=== PATIENT | male | born 1935 | race Caucasian/White ===

== ENCOUNTER 2017-07-13 06:40 | Inpatient (IN) | payer MEDICARE ==
[2017-07-13] VITALS (10 sets, daily range): BP systolic 125–165; BP diastolic 50–65
[~2017-07-13] VITALS: Ht 175 cm; Wt 63.2 kg
--- NOTE | ~2017-07-13 | EKG ---
[place], [place] ELECTROCARDIOGRAM REPORT NAME: NORMAN CUEVAS UNIT #: [id number] ROOM: 529 DOCTOR: KAMLA LAROSE MD,VICTORINA BIRTHDATE: [birth year] DOS: 07/14/2017 Electrocardiogram done for 07/14/2017, at 1:17 p.m. Normal sinus rhythm noted. Heart rate 97 beats per minute. The apices was also noted. VICTORINA CASON MD CM:EKGRPT:ELECTROCARDIOGRAM REPORT 1614 [id number] VICTORINA LAROSE MD
--- NOTE | ~2017-07-13 | CON ---
[place], [place] REPORT OF CONSULTATION NAME: NORMAN CUEVAS UNIT #: [id number] ROOM: 529 DOCTOR: AGATA COOK MD BIRTHDATE: [birth year] DOS: 07/15/2017 REASON FOR CONSULTATION: Congestive heart failure. CLINICAL HISTORY: The patient is an 82-year-old gentleman with history of hypertension, COPD, home oxygen, came to the Emergency Room for progressive shortness of breath, cough, and chest congestion, which has been going on for at least a week. The patient did have some chronic underlying shortness of breath from the COPD, but for the past week or two, he has progressive shortness of breath. In the Emergency Room, found to have a pleural effusion on the right side as well as some possible pneumonia. He was admitted to the hospital and the Pulmonary was consulted and Cardiology was consulted for his heart failure and currently he is being treated with oxygen, antibiotics and also DuoNeb. At the time of examination, the patient was alert, mild short of breath. Denies any chest pain, no palpitations, no PND, no orthopnea, no nausea, vomiting, no fever and chills, no tingling, numbness or weakness. No neurologic symptoms. No visual symptoms. No bladder or bowel symptoms. NO musculoskeletal symptoms. No psychiatric symptoms. No GI symptoms, only accompanied with mild shortness of breath at rest and also on exertion. REVIEW OF SYSTEMS: Review of the 10 system negative except as mentioned above. PAST MEDICAL HISTORY: 1. Hypertension. 2. Advanced COPD. 3. Home oxygen. PAST SURGICAL HISTORY: Noncontributory. ALLERGIES: THE PATIENT IS ALLERGIC TO ASPIRIN. HOME MEDICATIONS: Reviewed. FAMILY HISTORY: Noncontributory. SOCIAL HISTORY: The patient does not smoke or drink. No illicit drugs. REVIEW OF THE DIAGNOSTIC TESTS: EKG, labs, and imaging studies reviewed. EKG showed sinus tachycardia with some lateral ST-T changes. Hemoglobin 12.2, platelet 440,000. Potassium 3.3, magnesium 2.0, creatinine 0.66, BUN 6, ProBNP 1763. Troponins are negative. Chest x-ray reviewed. PHYSICAL EXAMINATION: VITAL SIGNS: Blood pressure 135/50, pulse 103, respiratory rate 18, weight 61.3 kilos, BMI 20. GENERAL: Alert, comfortable, in no acute distress, mild short of breath while talking. HEENT: Pupils are equal, no jaundice. NECK: Supple, no distended neck veins, no carotid bruit. CHEST: Symmetrical, nontender. [place], [place] REPORT OF CONSULTATION NAME: NORMAN CUEVAS UNIT #: [id number] ROOM: 529 DOCTOR: JOYCE VILLEGAS,AGATA BIRTHDATE: [birth year] LUNGS: Few scattered rhonchi, diminished at the right base. HEART: Regular rhythm, no S3, grade 2/6 systolic murmur at the right sternal border. No palpable thrills. ABDOMEN: Benign, nontender. Bowel sounds normal. EXTREMITIES: Showed no edema. Distal pulses palpable. SKIN: Warm and dry. No cyanosis, no clubbing. RECTAL: Deferred. NEUROLOGIC: The patient is alert, oriented. PSYCHIATRIC: The patient is alert with good mood and affect. IMPRESSION: 1. Chronic diastolic heart failure. Follow up all possible right heart failure. 2. Sinus tachycardia, borderline, due to underlying pulmonary condition. 3. Advanced chronic obstructive pulmonary disease. 4. Hypertension. 5. Possible pulmonary hypertension and tricuspid regurgitation by examination. 6. Mild hypokalemia. RECOMMENDATIONS: I would give him Lasix 20 mg daily for his right pleural effusion and also elevated BNP. The patient had no rales and no edema. Monitor his blood pressure and renal function. Check 2D echo for LV function, right ventricular function. No further cardiac testing at this time. Supplement his potassium with 20 mEq of potassium chloride. The patient gets more sinus tachycardic, rates are above 120, then I will start low dose beta blockers. There is no family at bedside at the time of my examination. AAGTA COOK MD CM:CONSTR:REPORT OF CONSULTATION 1623 07/16/17 [id number] interface
--- NOTE | ~2017-07-13 | PR ---
[place], [place] PROGRESS NOTE [facility]: [id number] UNIT #: [id number] ROOM: 529 DOCTOR: CAESAR BALDERRAMA DO BIRTHDATE: [birth year] DOS: 07/15/2017 SUBJECTIVE: The patient was seen and evaluated while sitting upright in bed today. He notes that he has been having trouble sleeping and is wondering if there is any medication that he could be given to help him sleep at night. He does note that his breathing is much better, though he is still having a harsh cough and is not fully able to expectorate. He does note that he is not getting quite as winded when ambulating. He denies any chest pain, lightheadedness, dizziness, nausea, vomiting, fever or chills. OBJECTIVE: VITAL SIGNS: At the time of exam, temperature 98.2, pulse 93, respiratory rate 18, blood pressure 134/80, and bedside pulse ox 94% on room air. GENERAL: Alert, awake, in no acute distress, responsive and cooperative. HEAD: Normocephalic, atraumatic. EYES: No lesions, no ulceration, no drainage, nonicteric. ENT: No scars, no masses, no lesions. Oral mucosa moist. Nares patent. NECK: Without masses or ulcerations. Supple, nontender. Trachea is midline. LUNGS: Clear to auscultation bilaterally. No wheezes, no rhonchi, no rales appreciated today. Good inspiratory effort. CARDIAC: Regular rate and rhythm. No gallop, no murmur, no rubs. No edema in lower extremities. ABDOMEN: Soft, nontender, nondistended. Bowel sounds are present. No abdominal pain. EXTREMITIES: No clubbing, no cyanosis, no erythema, no edema. SKIN: No rash, no ulceration, no lesion, no induration, no nodules. LABORATORY AND DIAGNOSTIC DATA: Blood cultures are negative. Urine culture is negative. Stool was sent for C. diff and is negative. IMPRESSION: 1. Likely right lower lobe pneumonia, community acquired. 2. Acute exacerbation of reactive airway disease, possibly chronic obstructive pulmonary disease. 3. Essential hypertension. 4. Hypothyroidism. TREATMENT PLAN: The patient will have bronchoscopy today. Continue IV antibiotics with Rocephin, azithromycin, adjustment to antibiotic regimen will depend on cultures from bronchial washings. Continue Solu-Medrol 40 q.8 IV and DuoNeb breathing treatments. Discussed the use of Restoril for insomnia for the patient with the patient's PCP, Dr. Dyllan Abdi and he is in agreement with this plan, we will start 15 mg Restoril at bedtime p.r.n. insomnia. CAESAR BALDERRAMA DO [place], [place] PROGRESS NOTE NAME: NORMAN CUEVAS UNIT #: [id number] ROOM: 529 DOCTOR: CAESAR BALDERRAMA DO BIRTHDATE: [birth year] VICTORINA CASON MD CM:PNSUNITHA [id number] CAESAR BALDERRAMA DO 07/15/171926 interface
--- NOTE | ~2017-07-13 | PR ---
[place], [place] PROGRESS NOTE NAME: [id number] UNIT #: [id number] ROOM: 529 DOCTOR: KAMLA LAROSE MDVICTORINA BIRTHDATE: [birth year] DOS: 07/15/2017 SUBJECTIVE: The patient has been n.p.o. past midnight for bronchoscopy. He was independently seen and examined with [id number] encounter. History was confirmed. Physical examination was performed. The labs were reviewed. The assessment, management personally completed. Note done by the medical coding instructor was approved as well. The patient has been still noted symptoms of coughing, wheezing, without any changes, dyspnea with exertion. Denies symptoms of chest pain, headache or diplopia. Denies symptoms of abdominal pain, nausea, vomiting, diarrhea, dysuria or suprapubic pain. The remaining systems were reviewed. They were noted all negative. PHYSICAL EXAMINATION: VITAL SIGNS: Normal temperature, respiratory rate of 18, heart rate 93, blood pressure 134/50. The pulse oxygen saturation was noted on 2 liter nasal cannula was 95% saturation. HEENT: No acute change. NECK: Supple. CARDIOVASCULAR: S1, S2 is audible. LUNGS: Noted without any crackles. Moderate decreased breath sounds. Expiratory wheezing noted bilaterally. ABDOMEN: Soft, nontender. EXTREMITIES: Without any acute edema. MUSCULOSKELETAL: Without any acute deformities. SKIN: Noted without any lesions or rashes. CENTRAL NERVOUS SYSTEM: No focal deficit. Cranial nerves 2-12 intact. LABORATORY DATA: Reviewed today, stool for C. diff toxin noted negative. CT scan of the chest that I ordered for the patient was completed on 07/14/2017 and shows bilateral small pleural fluid noted, greater on the right than the left side. Area of compression atelectasis of the patient was noted in the right lower lobe. Specifically, there was no pulmonary nodules above in the left lower lobe as well as right lower lobe for the patient as suspected with a chest x-ray. IMPRESSION: 1. Ongoing acute exacerbation of chronic obstructive pulmonary disease with acute tracheobronchitis. 2. Bilateral pleural fluid, most likely related due to congestive heart failure superimposed with the current ongoing chronic obstructive pulmonary disease would be considered. Additional diagnoses of the pleural fluid noted [id number] on the right side. There was no pulmonary nodules noted at the present time. 3. Area of compression atelectasis of the patient in the right lower lobe, possibility of pneumonia certainly can be completely excluded. PLAN OF TREATMENT: Continue antibiotics, bronchodilators, and oxygen supplementation proceed with the bronchoscopy today as planned. A thoracentesis could be done as pleural fluid remains persistent in the right side could be tappable fluid. Diuretic therapy for the patient should be given. Cardiology [place], [place] PROGRESS NOTE NAME: NORMAN CUEVAS UNIT #: [id number] ROOM: 529 DOCTOR: KAMLA LAROSE MD,VICTORINA BIRTHDATE: [birth year] consultation will be recommended if not done. Current dose of Solu-Medrol will be continued for the patient as previously. Usual care. All other supportive therapy, plan of management and treatments. VICTORINA CASON MD CM:AUREA [phone] VICTORINA LAROSE MD 07/20/17 0719 interface
--- NOTE | ~2017-07-13 | CON ---
[place], [place] REPORT OF CONSULTATION NAME: NORMAN CUEVAS UNIT #: [id number] ROOM: 529 DOCTOR: CAESAR BALDERRAMA DO BIRTHDATE: [birth year] DOS: 07/14/2017 CONSULTING PROVIDER: Dr. Dyllan Abdi. REASON FOR CONSULTATION: Pneumonia. HISTORY OF PRESENT ILLNESS: This patient is an 82-year-old white male who states he has had worsening shortness of breath and coarse cough over the past week. He notes that he has not been able to expectorate anything with his cough. He also notes a history of chronic back pain and states that the Vicodin he takes p.r.n. did help with his cough as he had developed some rib pain along the costovertebral angles. The patient states he had a pneumonia shot, but thinks it was possibly about 6 years ago and he has not had one since. He does also note that he did get a flu shot this year. The patient also reports symptoms of lightheadedness upon change of position and episode of diaphoresis a couple of days ago associated with his shortness of breath, lower extremity edema, one episode of posttussive emesis and occasional urinary issues including increased frequency and postvoid dribbling. He is a former smoker, states he smoked about a pack per week for about 20 years, but quit 2 months ago. 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 REVIEW OF SYSTEMS: CONSTITUTIONAL: The patient denies fever, chills or any significant weight change. HEENT: Denies any burning, redness, tenderness in his eyes. Denies pain in the eyes, ears, nose or mouth. Denies change in vision or hearing. Denies trouble swallowing. CARDIOVASCULAR: Denies chest pain, but does admit some pain in his posterior ribs with deep breathing and after coughing. Denies palpitations. Reports lower extremity edema. RESPIRATORY: Reports shortness of breath, reports cough. Reports dyspnea on exertion, reports chest congestion and reports wheezing. Denies any paroxysmal nocturnal dyspnea. GASTROINTESTINAL: Denies nausea, but does admit one episode of posttussive emesis. Denies diarrhea, constipation. Denies abdominal pain. Denies melena, denies hematochezia. Denies hematemesis. Denies loss of appetite. GENITOURINARY: Denies dysuria, but reports increased frequency of urination and postvoid dribbling with urination. Denies hematuria. SKIN: Denies any new rashes, lesions or ulcers. MUSCULOSKELETAL: Denies joint pains, erythema or cyanosis of the extremities. Reports lower extremity edema. NEUROLOGIC: Denies dizziness, denies confusion. Reports lightheadedness with change of position. PSYCHIATRIC: Denies depression, denies anxiety. Denies any substance abuse. PAST MEDICAL HISTORY: 1. Essential hypertension. 2. Hypothyroidism. 3. Chronic back pain with sciatica-type symptoms down the left leg. [place], [place] REPORT OF CONSULTATION NAME: NORMAN CUEVAS UNIT #: [id number] ROOM: 529 DOCTOR: CAESAR BALDERRAMA DO BIRTHDATE: [birth year] PAST SURGICAL HISTORY: The patient reports abdominal surgery, but he is unsure of the exact procedure that took place. From what he remembers, it sounds like a perforated stomach ulcer that was repaired. 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 Víctor Graves had at that time considered plans for a left carotid endarterectomy though the patient does not remember this procedure. SOCIAL HISTORY: Former smoker, quit 2 months ago, previously smoked a pack per week of cigarettes for 20 years, occasional consumption of alcohol and does not use illicit drugs. FAMILY HISTORY: The patient's mother at age 90 of old age. The patient's father at age 94 of old age. HOME MEDICATIONS: Include 10 mg of daily amlodipine and 50 mcg of daily Synthroid. DRUG ALLERGIES: ASPIRIN. PHYSICAL EXAMINATION: GENERAL: This is an 82-year-old white male who is awake and alert without any acute distress. He is 5 feet 9 inches tall and weighs 63.276 kilograms with a BMI of 20.7. VITAL SIGNS: At the time of exam, temperature 97.9, pulse 68, respiratory rate 17, blood pressure 122/56 with bedside pulse ox 97% on 2 liters via nasal cannula. The patient does not wear oxygen via nasal cannula at home. HEAD: Normocephalic, atraumatic. EYES: No lesions, no ulceration, no drainage, nonicteric. ENT: No lesions, no masses, no scars. Nares patent. Oral mucosa moist. No pharyngeal erythema or exudate. Tongue is midline. NECK: Supple, nontender, trachea is midline. CARDIOVASCULAR: Regular rate and rhythm with no murmurs, rubs or gallops noted, 2-3+ pitting edema of the bilateral lower extremities is noted. LUNGS: Decreased breath sounds diffusely. Bilateral expiratory wheeze and some rhonchi and crackles noted to the right lower lobe and also coarse cough with little to no production noted. ABDOMEN: Soft, nontender, flat, nondistended. Bowel sounds present. EXTREMITIES: No cyanosis, clubbing, erythema. 2-3+ bilateral lower extremity pitting edema is noted. SKIN: Warm and dry, no lesions, no masses, no rashes, no ulcerations, no nodules, no tightening noted. NEUROLOGIC: Grossly intact with no focal deficit. Sensation grossly intact. PSYCHIATRIC: Good historian. Fair judgment and insight. Good recent and remote memory. Exhibits normal mood and normal affect. LABORATORY AND DIAGNOSTIC DATA: CBC on admission yesterday morning, white blood cell count 11, hemoglobin 11.7, hematocrit 34.3, platelet count 422. CBC this morning, white blood cell count down to 8, hemoglobin 12.2, hematocrit 35.8 and platelet count 440. CMP on admission, sodium 134, potassium 4, chloride 102, bicarbonate 22, BUN 9, creatinine 0.76, glucose 114, calcium 8.1 with an albumin [place], [place] REPORT OF CONSULTATION NAME: NORMAN CUEVAS UNIT #: [id number] ROOM: 529 DOCTOR: CAESAR BALDERRAMA DO BIRTHDATE: [birth year] of 3.6, total protein 7.8, total bilirubin 0.5, AST 20, ALT 18, alkaline phosphatase 68. Initial troponin negative. Initial proBNP 1763. Initial lactic acid normal at 1.3. Initial magnesium 2.4. BMP this morning, sodium 138, potassium 3.3 slightly low, chloride 103, bicarbonate 24, BUN 6, creatinine 0.66, glucose 90, calcium 8.3. Urinalysis on admission, largely benign, but does show 1+ protein and 1+ blood. Blood cultures were taken on admission and they are pending. Urine culture has resulted with no bacterial growth. Chest x-ray taken on admission in the ER shows opacity in the right lung base concerning for pneumonia with a small right pleural effusion. IMPRESSION: 1. Right lower lobe pneumonia, community acquired with small right pleural effusion, possibly due to pneumonia. 2. Possible reactive airway disease exacerbation. 3. Essential hypertension. 4. Hypothyroidism. PLAN OF MANAGEMENT: The patient was admitted and started on IV antibiotics with Rocephin and azithromycin, we agree with these antibiotics and we will continue. We will add 40 mg Solu-Medrol q.8h IV with DuoNeb breathing treatments q.4h. for the possible reactive airway disease exacerbation as the patient has been wheezing and tight on exam. He has no formal diagnosis of COPD or asthma at this time and would likely benefit from pulmonary function testing as an outpatient to assess for these conditions. Furthermore, the patient will be taken for bronchoscopy in the morning. He will be made n.p.o. after midnight in order to be ready for the bronchoscopy tomorrow. Thank you for allowing us to participate in the care of this patient. CAESAR BALDERRAMA DO VICTORINA CASON MD CM:CONSTR:REPORT OF CONSULTATION 1703 07/20/17 0717 interface
--- NOTE | ~2017-07-13 | PR ---
[place], [place] PROGRESS NOTE NAME: NORMAN CUEVAS UNIT #: [id number] ROOM: 529 DOCTOR: KAMLA LAROSE MD,VICTORINA BIRTHDATE: [birth year] DOS: 07/16/2017 SUBJECTIVE: He has been noted comfortable at this time. The bronchoscopy completed yesterday. The patient with reduction in symptoms of cough and other symptoms noted. Complaining of generalized weakness and fatigue. Wheezing has been improving. There were symptoms of chest pain. OBJECTIVE: VITAL SIGNS: This morning, normal temperature, respiratory rate 19, heart rate 74, blood pressure is 127/54. Pulse oxygen saturation on room air 96% saturation. HEENT: Examination shows head was atraumatic. Eyes: Nonicterus. NECK: Supple. CARDIOVASCULAR: S1, S2 audible. LUNGS: The patient was noted without any wheezing or crackles at the present time. ABDOMEN: Soft, nontender. EXTREMITIES: Noted without any acute edema. LABORATORY DATA: Preliminary culture of the bronchial washing noted as no bacterial growth. Final culture results were pending. IMPRESSION: The patient with resolving acute exacerbation of chronic obstructive pulmonary disease at the present time with current medical management was noted, bronchoscopy, and reduction in symptoms of coughing or wheezing. PLAN OF TREATMENT: Discharge planning could be started for the patient home discharge. The patient stated that he is feeling generalized weakness at the present time. He makes an effort to get benefit from the physical therapy. VICTORINA CASON MD CM:PNTRANS [id number] VICTORINA LAROSE MD 07/16/17 1423 interface
--- NOTE | ~2017-07-13 | DS ---
[place], [place] DISCHARGE SUMMARY NAME: NORMAN CUEVAS UNIT #: [id number] ROOM: 529 DOCTOR: CARMEN RANGEL MD BIRTHDATE: [birth year] DOS: 07/16/2017 DISCHARGE DIAGNOSES: 1. Pulmonary hypertension and right-sided congestive heart failure. 2. Acute exacerbation of chronic obstructive pulmonary disease. 3. Benign essential hypertension. 4. Acute right lower lobe pneumonia. 5. Benign essential hypertension. 6. Hypothyroidism. HOSPITAL COURSE: The patient presented to the Emergency Department with increasing shortness of breath, swelling in his legs, cough, chest congestion and some wheezing and generalized weakness. The patient was found to have pleural effusion and pneumonic consolidation in the right lung base. The patient was treated with antibiotics and taken for a bronchoscopy by Dr. Garrison. The patient had white cell count elevated to 11,000. ProBNP was 1700 and she also showed signs of congestive heart failure. 1. Acute right-sided CHF with pulmonary hypertension related to his COPD. Echocardiogram was performed and he has good left ventricular ejection fraction. The patient appears to have achieved maximum benefit from treatment. His leg edema has improved and he will be kept on bronchodilators. The patient was evaluated and treated by Dr. Garrison and a bronchoscopy was also performed. 2. Acute exacerbation of chronic obstructive pulmonary disease and pneumonia, treated with antibiotics. He is breathing much better and pulse ox remained at 95% with ambulation. The patient not getting short of breath with exertion anymore and his lungs are clear to auscultation. 3. Hypothyroidism, treated with thyroid supplements. 4. Benign essential hypertension treated with Norvasc. Blood pressures are staying normal. LABORATORY DATA: Blood cultures were normal. Echocardiogram results as mentioned above. Stool for C. diff was negative. DISCHARGE MANAGEMENT: Medrol Dosepak, amlodipine 10 mg a day, levothyroxine 50 mcg daily, Augmentin 875 mg twice a day for a week. DuoNeb q.i.d. Follow up with me in the office this week. [place], [place] DISCHARGE SUMMARY NAME: NORMAN CUEVAS UNIT #: [id number] ROOM: 529 DOCTOR: CARMEN RANGEL MD BIRTHDATE: [birth year] CARMEN RANGEL MD CM:[id number] CARMEN RANGEL MD 07/16/17 2158 interface
--- NOTE | ~2017-07-13 | WRIGHTHP ---
[place], [place] PATIENT HISTORY AND PHYSICAL EXAM NAME: NORMAN CUEVAS [facility] #: [id number] UNIT #: [id number] ROOM: 529 DOCTOR: CARMEN RANGEL MD BIRTHDATE: [birth year] DOS: 07/13/2017 PRESENTING COMPLAINT: Increasing shortness of breath, wheezing, cough and patient found to have pneumonia on the chest x-ray along with some pleural effusions. HISTORY OF PRESENT ILLNESS: The patient is an 82-year-old gentleman who presented to [facility] Emergency Department with about 1 week of progressive shortness of breath, cough, chest congestion, some wheezing and generalized weakness. The patient was found to have a pleural effusion in the right lung and a pneumonic consolidation in the right lung base. The chest x-ray with some leukocytosis with a white cell count of 11,000 and elevated proBNP to 1700. The patient was diagnosed as having acute CHF and acute pneumonia with acute respiratory failure and recommended for admission for the management. After admission, the patient will be kept on DuoNebs, oxygen, antibiotics to cover his pneumonia and I will get Dr. Garrison, the surgical instrument mechanic, to follow him. No chest pains, no dizziness or fainting episodes. No other GI or urinary symptoms. The chest pain complaints noted in the Emergency Department. The patient says that he had no chest pain, just some tightness with shortness of breath and wheezing in his chest. No nausea, no diaphoresis and no angina equivalent. REVIEW OF SYSTEMS: LUNGS: Increasing shortness of breath and wheezing. GASTROINTESTINAL: No nausea, vomiting, diarrhea, or constipation. CARDIOVASCULAR: No chest pain or any angina related symptoms. FAMILY HISTORY: Noncontributory. HOME MEDICATIONS: The patient takes levothyroxine and amlodipine. ALLERGIES: Known allergies to ASPIRIN. PHYSICAL EXAMINATION: GENERAL: Alert and oriented x 3, somewhat short of breath, but in no visible distress. HEENT AND NECK: Extraocular movements are intact. Sclerae are anicteric. Oral mucosa is moist and clean. No obvious facial weakness. Neck is supple without any lymphadenopathy. No thyromegaly. No JVD. No carotid arterial bruits. LUNGS: Decreased breath sounds all over and slight expiratory wheezing. CARDIOVASCULAR SYSTEM: Heart rate is regular in rate and rhythm. S1 and S2 normally audible. No significant murmur or any other abnormal cardiac sounds. ABDOMEN: Soft, nontender. No obvious organomegaly. Bowel sounds are present. No obvious herniation. EXTREMITIES: 2+ leg and pedal edema. CENTRAL NERVOUS SYSTEM: Alert and oriented x 3. Cranial nerves II-XII are intact. Speech is normal. The patient is able to move all extremities. Normal [place], [place] PATIENT HISTORY AND PHYSICAL EXAM NAME: NORMAN CUEVAS UNIT #: [id number] ROOM: 529 DOCTOR: CARMEN RANGEL MD BIRTHDATE: [birth year] muscle strength. Deep tendon reflexes are equal on both sides. Plantars were downgoing. IMPRESSION: 1. Acute right-sided heart failure related to his advanced COPD, to be treated with oxygen and leg elevation. The patient has significant leg edema. 2. Benign essential hypertension, to be treated with Norvasc. 3. Hypothyroidism, to be treated with thyroid supplements. CARMEN RANGEL MD CM:HISPHYS:PATIENT HISTORY AND PHYSICAL EXAMINATION 1040 [id number] CARMEN RANGEL MD 07/13/17 1149 interface
--- NOTE | ~2017-07-13 | PROC NOTE ---
[place], [place] PROCEDURE NOTE NAME: NORMAN CUEVAS UNIT #: [id number] ROOM: 529 DOCTOR: KAMLA LAROSE MD,VICTORINA BIRTHDATE: [birth year] DOS: 07/15/2017 BRONCHOSCOPY NOTE PREOPERATIVE DIAGNOSES: Severe coughing, wheezing, possibly acute pneumonia. POSTOPERATIVE DIAGNOSES: Severe coughing, wheezing, possibly acute pneumonia with removal of the mucus impaction of major airways. PROCEDURE DESCRIPTION: Informed consent obtained by the patient. The patient brought to the OR and placed in supine position. Conscious administered by the Anesthesia Department. After that in supine position the airway introduced into the mouth. Bronchoscope advanced to airway into laryngeal area. Epiglottis and vocal cords were seen. Vocal cords moving symmetrically with movements. Bronchoscope advanced to vocal cord and tracheal lumen. Tracheal lumen shows moderate amount of mucoid secretion with some purulent secretion mixture suctioned out to the nan level. The patient noted similar secretions in the endobronchial tree and bilateral lower lobe subsegment which was cleared by half normal saline wash. No endobronchial obstructive lesions noted. Procedure well tolerated by the patient without difficulty. Postoperative finding will be discussed once the patient recovers the effects of acute sedation. No family member available to discuss the current findings. VICTORINA CASON MD CM:PROCNOTE:PROCEDURE NOTE [id number] VICTORINA LAROSE MD
--- NOTE | ~2017-07-13 | CON ---
[place], [place] REPORT OF CONSULTATION [id number] UNIT #: [id number] ROOM: 529 DOCTOR: KAMLA LAROSE MDVICTORINA BIRTHDATE: [birth year] DOS: 07/14/2017 PULMONARY CONSULTATION, EVALUATION AND MANAGEMENT CONSULTATION REQUESTED BY: Dr. Apple Barajas. REASON FOR CONSULTATION: Assess the patient's current ongoing acute respiratory symptom with coughing, chest congestion, and exacerbation of chronic obstructive pulmonary disease. The patient was seen and examined independently in [id number] encounter. History and physical examination confirmed, all the labs were reviewed. Assessment and management of the patient was personally completed, today's note as well. The note done by the medical accountant was approved as well for this consultation. HISTORY OF PRESENT ILLNESS: This is an 82-year-old white male, who has been admitted to the hospital under the care of Dr. Abdi on 07/13/2017, as he has reported having symptoms of progressive increased shortness of breath ongoing for the past few days. He was also complaining of symptoms of wheezing with shortness of breath. All the symptoms have been noted gradually progressive. The patient has been admitted to the hospital for further medical management. The patient was seen in the Emergency Room. He has a chest x-ray done on 07/13/2017, at this time described evidence of pulmonary infiltration suspected pneumonia in the right lower lobe. The patient with a pleural effusion. The patient continued to have symptoms of cough, which has been noted moderate to severe, non-productive with excessive chest congestion. He has not been able to expectorate sputum with the cough. He denies symptoms of hemoptysis with that. Denies any symptoms of chest pain except resulting from the cough. REVIEW OF SYSTEMS: Completed by the medical accountant. PAST MEDICAL HISTORY: 1. History of chronic obstructive pulmonary disease. 2. Chronic nicotine dependence. 3. History of congestive heart failure with systolic and diastolic dysfunction, unknown. 4. History of hypothyroidism. SOCIAL HISTORY: Reported as , has 3 children. History of tobacco use noted, 2 packs per week. 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 There was no history of alcohol use or illicit drug use. PAST SURGICAL HISTORY: Reported vagotomy for the stomach ulcer. FAMILY HISTORY: Unknown. CURRENT MEDICATIONS: Administered noted use of amlodipine, levothyroxine, Mucinex, Zithromax, and Rocephin. [place], [place] REPORT OF CONSULTATION NAME: NORMAN CUEVAS UNIT #: [id number] ROOM: 529 DOCTOR: KAMLA LAROSE MD,VICTORINA BIRTHDATE: [birth year] DRUG ALLERGIES: THE PATIENT NOTED ALLERGY TO ASPIRIN. PHYSICAL EXAMINATION: GENERAL: An 82-year-old white male currently noted awake and alert without any distress. Height of 5 feet 9 inches, weight 175 pounds, BMI 19.5. VITAL SIGNS: Normal temperature, respiratory 18-24, heart rate of 64-95, blood pressure 122/56-131/59. Pulse oxygen saturation recorded as 97% saturation on 2 liters nasal cannula. HEENT: Examination shows head was atraumatic. Eyes nonicterus. NECK: Supple. CARDIOVASCULAR: S1, S2 is audible. LUNGS: Noted with expiratory wheezing in the lungs. There was no wheezing. There were rather no crackles. ABDOMEN: Flat, soft, nontender. EXTREMITIES: Without any acute edema. MUSCULOSKELETAL: The patient noted without any acute deformities. SKIN: Visible skin, without lesions or rashes. CENTRAL NERVOUS SYSTEM: No focal deficit. Cranial nerves 2-12 intact. LABORATORY DATA: CBC yesterday, 07/13/2017, WBC count 11,000, hemoglobin 11.7, hematocrit was 34% with a platelet count 422,000. Lactic acid 1.3. PT/PTT normal. CMP of the patient this morning, BUN and creatinine normal, sodium 134. BMP this morning, normal BUN and creatinine, glucose of 90. Potassium 3.3. Urine cultures, no bacterial growth, preliminary. CBC of the patient normal WBC count, hemoglobin 12.2, hematocrit 35.8, platelet count was normal. The chest x-ray that was done, 1 view shows a small patchy area of infiltration in the left lower lobe with a nodule, cannot be completely excluded, left lower lung with associated small pleural effusion. IMPRESSION: 1. The patient will be currently admitted to the hospital, has a longstanding history of tobacco use with finding consistent with acute chronic obstructive pulmonary disease. 2. Possibility of a nodule. The patient's right lower lobe cannot be excluded with the pleural fluid considered. Whether the patient has pneumonia, pleural fluid related to the possibly congestive heart failure cannot be completely excluded. 3. History of hypothyroidism. PLAN OF TREATMENT: The patient will be started on IV Solu-Medrol and bronchodilators every 4 hours. Therapeutic bronchoscopy suggested because of past history of productive cough, which has been noted for the past few weeks, not resolving with current treatment. I will be ordering CT scan of the chest as well with IV contrast for further assessment of current pleural fluid abnormality including ruling out pulmonary nodule in the right lower lobe. Additional treatment changes will be recommended based on the progression of the illness. Other additional treatment changes to be made for this patient based on the progression of the illness. Usual care. Thanks for allowing me to participate in care of this patient. [place], [place] REPORT OF CONSULTATION NAME: NORMAN CUEVAS [place] UNIT #: [id number] ROOM: 529 DOCTOR: VICTORINA BROCK MD BIRTHDATE: [birth year] VICTORINA CASON MD CM:CONSTR:REPORT OF CONSULTATION 1636 07/15/17 0121 interface
--- NOTE | ~2017-07-13 | EKG ---
[place], [place] ELECTROCARDIOGRAM REPORT NAME: NORMAN CUEVAS UNIT #: [id number] ROOM: 529 DOCTOR: KAMLA LAROSE MD,VICTORINA BIRTHDATE: [birth year] DOS: 07/13/2017 The electrocardiogram done for this patient on 07/13/2017 at 06:49 a.m. The electrocardiogram shows mild sinus tachycardia, heart rate of 103 beats per minute with nonspecific ST-T changes. VICTORINA CASON MD CM:EKGRPT:ELECTROCARDIOGRAM REPORT 1616 1940 VICTORINA LAROSE MD
--- NOTE | ~2017-07-13 | PR ---
[place], [place] PROGRESS NOTE NAME: NORMAN CUEVAS UNIT #: [id number] ROOM: 529 DOCTOR: AGATA COOK MD BIRTHDATE: [birth year] DOS: 07/16/2017 REASON FOR VISIT: Congestive heart failure. The patient is feeling better. Denies any chest pain or palpitations. Still slightly short of breath. No PND, no orthopnea, no edema. No nausea, vomiting, diarrhea. No headaches. REVIEW OF SYSTEMS: Review of the 8 systems negative except as mentioned above. RHYTHM STRIPS: The patient is asked. PHYSICAL EXAMINATION: VITAL SIGNS: Blood pressure 106/69, pulse 83, respiratory rate 20. GENERAL: Alert, comfortable, in no acute distress. NECK: Supple, no distended neck veins, no carotid bruit. CHEST: Symmetrical, nontender. LUNGS: Clear to auscultation bilaterally except diminished at right base. HEART: Regular rhythm, no S3, grade 2/6 systolic murmur. ABDOMEN: Benign, nontender. Bowel sounds normal. EXTREMITIES: No edema. Distal pulses palpable. SKIN: Warm and dry. No cyanosis, no clubbing. NEUROLOGIC: The patient is alert, oriented. No focal neurologic deficit. RECTAL: Deferred. LABORATORY DATA: Review of the diagnostic test echo showed EF 70% with moderate tricuspid regurgitation and moderate pulmonary hypertension. IMPRESSION: 1. Chronic heart failure with preserved ejection fraction. 2. Moderate pulmonary hypertension. 3. Right pleural effusion. 4. Chronic obstructive pulmonary disease. 5. Hypertension. RECOMMENDATIONS: Continue Lasix 20 mg daily, monitor blood pressures and renal function. No further cardiac testing at this time. No family at bedside at the time of examination. [place], [place] PROGRESS NOTE NAME: NORMAN CUEVAS UNIT #: [id number] ROOM: 529 DOCTOR: AGATA COOK MD BIRTHDATE: [birth year] AGATA COOK MD CM:PNTRANS [id number] AGATA COOK MD 07/16/17 8447 interface
--- NOTE | ~2017-07-13 | PR ---
[place], [place] PROGRESS NOTE NAME: NORMAN CUEVAS UNIT #: [id number] ROOM: 529 DOCTOR: CARMEN RANGEL MD BIRTHDATE: [birth year] DOS: 07/14/2017 SUBJECTIVE: The patient is starting to breathe better with treatment. OBJECTIVE: VITAL SIGNS: Blood pressure 126/51, heart rate of 65 beats per minute, breathing 16 times a minute, temperature 98 degrees Fahrenheit. GENERAL APPEARANCE: The patient is alert and oriented x 3, in no visible distress. HEENT AND NECK: Exam within normal limits. CARDIOVASCULAR SYSTEM: Heart rate is regular in rate and rhythm. S1 and S2 normally audible. LUNGS: Decreased breath sounds on lung auscultation, especially at the bases bilaterally and some expiratory wheezing. ABDOMEN: Soft, nontender. No obvious organomegaly. Bowel sounds are present. EXTREMITIES: Without significant cyanosis or edema. IMPRESSION: 1. Acute over chronic respiratory failure, clinically improving. 2. Acute right lower lung pneumonia, treated with antibiotics. Dr. Garrison is further evaluating the patient with a CT of the chest. 3. Benign essential hypertension. Blood pressure is being treated and monitored. The patient on Norvasc. 4. Hypothyroidism, treated with thyroid supplements. 5. Acute exacerbation of chronic obstructive pulmonary disease being treated with bronchodilators and oxygen. CARMEN RANGEL MD CM:PNTRANS [id number] CARMEN RANGEL MD 07/15/17 0324 interface
--- NOTE | ~2017-07-13 | PR ---
[place], [place] PROGRESS NOTE NAME: NORMAN CUEVAS UNIT #: [id number] ROOM: 529 DOCTOR: CARMEN RANGEL MD BIRTHDATE: [birth year] DOS: 07/15/2017 SUBJECTIVE: The patient is feeling better. He is waiting for a CT scan of the chest today, which was ordered by Dr. Garrison. OBJECTIVE: VITAL SIGNS: Blood pressure 134/50, heart rate 93 beats per minute, breathing 18 times per minute, temperature 98.2 degrees Fahrenheit. GENERAL APPEARANCE: The patient is alert and oriented x 3, in no visible distress. HEENT AND NECK: Exam within normal limits. CARDIOVASCULAR SYSTEM: Heart rate is regular in rate and rhythm. S1 and S2 normally audible. LUNGS: Decreased breath sounds, slight expiratory wheezing and especially some crackles at the bases bilaterally. ABDOMEN: Soft, nontender. No obvious organomegaly. Bowel sounds are present. EXTREMITIES: Without significant cyanosis or edema. IMPRESSION: 1. Acute over chronic respiratory failure with pneumonia, being treated with antibiotics and bronchodilators. 2. Acute right lower lobe pneumonia, being further evaluated with a CT scan of the chest this morning. Dr. Garrison, the pipe fitter supervisor maintenance was following and the patient is being treated with antibiotics. 3. Benign essential hypertension with controlled blood pressures. The patient is on Norvasc. 4. Hypothyroidism, treated with supplements. 5. Acute exacerbation of significant underlying chronic obstructive pulmonary disease, being treated with bronchodilators and oxygen. CARMEN RANGEL MD CM:PNTRANS 1035 [id number] CARMEN RANGEL MD 07/15/17 1301 interface
[~2017-07-13 06:40] MED LIST: HYDROCODONE BIT1 T11 PO; MEDROL DOSEPAK4 MG PO; NORVASC5 MG PO; PREDNICOT10 MG PO; SYNTHROID,LEVO50 MCG PO; VIBRAMYCIN100 MG PO; ZOVIRAX800 MG PO
[2017-07-13] MEDS ORDERED: LEVOTHYROXINE50 MCG PO (07:00)
[2017-07-13] MEDS ORDERED: AMLODIPINE BESY10 MG PO (07:01)
[2017-07-13 07:17] LABS: BASO # 0.1 10*3/uL (0.0-0.1); BASO % 0.5 % (0.0-1.0); EOS # 0.1 10*3/uL (0.0-0.4); EOS % 1.3 % (1.0-4.0); HEMATOCRIT 34.3 % (42.0-52.0); HEMOGLOBIN 11.7 g/dl (14.0-18.0); LYMPH # 0.9 10*3/uL (1.3-4.4); MEAN CORPUSCULAR HGB 34.1 pg (27.0-31.0); MEAN CORPUSCULAR HGB CONC 34.1 g/dl (33.0-37.0); MEAN PLATELET VOLUME 8.6 fl (9.6-12.3); MONO # 1.1 10*3/uL (0.1-1.0); MONO % 10.2 % (3.0-9.0); NEUT # 8.8 10*3/uL (2.3-7.9); NEUT % 79.6 % (47.0-73.0); PLATELET COUNT AUTOMATED 422 10*3/uL (130-400); RED BLOOD COUNT 3.43 10*6/uL (4.50-5.90); RED CELL DISTRI WIDTH 12.9 % (0-14.5)
[2017-07-13 07:26] LABS: ACT PARTIAL THROMBO TIME 25.9 SECONDS (20.8-31.5)
[2017-07-13 07:38] LABS: ALBUMIN 3.6 gm/dl (3.1-4.5); ALKALINE PHOSPHATASE 68 U/L (45-117); BUN 9 mg/dl (7-24); CHLORIDE 102 mmol/L (98-107); CREATININE 0.76 mg/dL (0.70-1.30); SGOT/AST 20 IU/L (3-35); SGPT/ALT 18 U/L (12-78); SODIUM 134 mmol/L (136-145); TOTAL PROTEIN 7.8 gm/dL (6.4-8.2)
[2017-07-13 07:42] LABS: TROPONIN I < 0.015 ng/ml (<0.045)
[2017-07-13 07:46] LABS: BILIRUBIN NEGATIVE (NEGATIVE); BLOOD 1+ (NEGATIVE); CLARITY CLEAR (CLEAR); COLOR YELLOW (YELLOW); GLUCOSE NEGATIVE (NEGATIVE); KETONE NEGATIVE (NEGATIVE); LEUKO ESTERASE NEGATIVE (NEGATIVE); NITRITE NEGATIVE (NEGATIVE); PH 5.5 (5.0-9.0); SPECIFIC GRAVITY 1.025 (1.005-1.030); UROBILINOGEN 0.2 E.U./dl (0.2-1.0)
[2017-07-13 07:58] LABS: BACTERIA TRACE
[2017-07-14] VITALS: BP 116/67
[2017-07-14 06:03] LABS: BASO % 0.5 % (0.0-1.0); EOS # 0.1 10*3/uL (0.0-0.4); EOS % 1.5 % (1.0-4.0); HEMATOCRIT 35.8 % (42.0-52.0); HEMOGLOBIN 12.2 g/dl (14.0-18.0); LYMPH # 1.7 10*3/uL (1.3-4.4); MEAN CELL VOLUME 100.8 fl (80.0-94.0); MEAN CORPUSCULAR HGB 34.4 pg (27.0-31.0); MEAN CORPUSCULAR HGB CONC 34.1 g/dl (33.0-37.0); MEAN PLATELET VOLUME 9.1 fl (9.6-12.3); MONO # 1.1 10*3/uL (0.1-1.0); MONO % 13.8 % (3.0-9.0); NEUT % 62.9 % (47.0-73.0); PLATELET COUNT AUTOMATED 440 10*3/uL (130-400); RED BLOOD COUNT 3.55 10*6/uL (4.50-5.90)
[2017-07-14 06:30] LABS: BUN 6 mg/dl (7-24); CHLORIDE 103 mmol/L (98-107); CREATININE 0.66 mg/dL (0.70-1.30); POTASSIUM 3.3 mmol/L (3.5-5.1); SODIUM 138 mmol/L (136-145)
[2017-07-14 08:00] VITALS: BP 122/56
[2017-07-14 12:00] VITALS: BP 126/51
[2017-07-14 20:00] VITALS: BP 123/53
[2017-07-15] VITALS (9 sets, daily range): BP systolic 116–143; BP diastolic 39–68
[2017-07-16] VITALS: BP 115/54
[2017-07-16 08:00] VITALS: BP 127/54
[2017-07-16 12:00] VITALS: BP 106/69
[2017-07-16 15:08] LABS: ACID FAST SPEC PROCESSING Concentration (.)
[2017-07-16 16:00] VITALS: BP 130/50
[2017-07-16] MEDS ORDERED: AUGMENTIN 875-875 MG PO (19:22)
[2017-07-16] MEDS ORDERED: MEDROL DOSEPAK4 MG PO (19:22)
[2017-07-16] MEDS ORDERED: DUONEB 3 MG/3 ML3 M1 NEB (19:22)
[2017-07-16 20:00] VITALS: BP 133/54
== END 2017-07-16 20:05 | disposition home or self-care (01) | DRG 291 ==
LOC: ED 06:40 → EDHOLD 08:30 → 5E 08:30
PROVIDERS: Internal Medicine; Internal Medicine Critical Care Medicine; Student in an Organized Health Care Education/Training Program
PROC: 0BC18ZZ Extirpation of Matter from Trachea, Via Natural or Artificial Opening Endoscopic (ICD-10-PCS; principal; 2017-07-15)
PROC: 0BC58ZZ Extirpation of Matter from Right Middle Lobe Bronchus, Via Natural or Artificial Opening Endoscopic (ICD-10-PCS; principal; 2017-07-15)
PROC: 0BC88ZZ Extirpation of Matter from Left Upper Lobe Bronchus, Via Natural or Artificial Opening Endoscopic (ICD-10-PCS; principal; 2017-07-15)
PROC: 0BC68ZZ Extirpation of Matter from Right Lower Lobe Bronchus, Via Natural or Artificial Opening Endoscopic (ICD-10-PCS; principal; 2017-07-15)
PROC: 0BCB8ZZ Extirpation of Matter from Left Lower Lobe Bronchus, Via Natural or Artificial Opening Endoscopic (ICD-10-PCS; principal; 2017-07-15)
PROC: 0BC48ZZ Extirpation of Matter from Right Upper Lobe Bronchus, Via Natural or Artificial Opening Endoscopic (ICD-10-PCS; principal; 2017-07-15)
PROC: 0BC98ZZ Extirpation of Matter from Lingula Bronchus, Via Natural or Artificial Opening Endoscopic (ICD-10-PCS; principal; 2017-07-15)
PROC: 0BC38ZZ Extirpation of Matter from Right Main Bronchus, Via Natural or Artificial Opening Endoscopic (ICD-10-PCS; principal; 2017-07-15)
PROC: 0BC78ZZ Extirpation of Matter from Left Main Bronchus, Via Natural or Artificial Opening Endoscopic (ICD-10-PCS; principal; 2017-07-15)
DX: I11.0 Hypertensive heart disease with heart failure (principal); J18.1 Lobar pneumonia, unspecified organism; J96.20 Acute and chronic respiratory failure, unspecified whether with hypoxia or hypercapnia; T17.490A Other foreign object in trachea causing asphyxiation, initial encounter; T17.590A Other foreign object in bronchus causing asphyxiation, initial encounter; J44.0 Chronic obstructive pulmonary disease with (acute) lower respiratory infection; J44.1 Chronic obstructive pulmonary disease with (acute) exacerbation; J98.11 Atelectasis; I27.20 Pulmonary hypertension, unspecified; E03.9 Hypothyroidism, unspecified; E87.6 Hypokalemia; R00.0 Tachycardia, unspecified; I50.43 Acute on chronic combined systolic (congestive) and diastolic (congestive) heart failure; G89.29 Other chronic pain; M54.9 Dorsalgia, unspecified; X58.XXXA Exposure to other specified factors, initial encounter; Y93.89 Activity, other specified; Y92.89 Other specified places as the place of occurrence of the external cause; Z79.899 Other long term (current) drug therapy; Z88.6 Allergy status to analgesic agent; Z99.81 Dependence on supplemental oxygen; Y99.8 Other external cause status

== ENCOUNTER → 2018-01-02 | Outpatient (CLI) | payer MEDICARE ==
[~2018-01-02] MED LIST changes: +AMLODIPINE BESY10 MG PO; +AUGMENTIN 875-875 MG PO; +DUONEB 3 MG/3 ML3 M1 NEB; +LEVOTHYROXINE50 MCG PO
== END | disposition home or self-care (01) ==
LOC: US 11-29 07:30
DX: K80.20 Calculus of gallbladder without cholecystitis without obstruction (principal); K83.8 Other specified diseases of biliary tract; K76.0 Fatty (change of) liver, not elsewhere classified; N28.1 Cyst of kidney, acquired; R60.9 Edema, unspecified

== ENCOUNTER → 2018-03-28 | Outpatient (CLI) | payer MEDICARE | END | disposition home or self-care (01) | LOC: CT 03-22 10:00 → LAB 09:41 → CT 10:00 | PROVIDERS: Internal Medicine | DX: I70.0 Atherosclerosis of aorta (principal); R10.9 Unspecified abdominal pain; J44.9 Chronic obstructive pulmonary disease, unspecified; I10 Essential (primary) hypertension ==

== ENCOUNTER 2018-12-26 23:10 | Inpatient (IN) | payer MEDICARE ==
[~2018-12-26] VITALS: Ht 172.7 cm; Wt 54.6 kg
--- NOTE | ~2018-12-26 | CON ---
[place], [place] REPORT OF CONSULTATION NAME: NORMAN CUEVAS UNIT #: [id number] ROOM: 507 DOCTOR: RAJINDER RIVERA MD BIRTHDATE: [birth year] DOS: 12/27/2018 GASTROENDOSCOPIC REPORT HISTORY OF PRESENT ILLNESS: The patient is an 83-year-old patient who has presented with chief complaint of atypical chest pain and epigastric pain. Troponin has been assessed repeatedly and has been unremarkable. Cholesterol panel nearly unremarkable and CBC at the time of admission, white blood cell 10, H and H of 13 and 37, BNP of greater than 600. Comprehensive metabolic panel normal. Liver function test, normal. Troponin within normal limit. Chest x-ray, COPD. PAST MEDICAL HISTORY: Associated with hypertension, COPD, hypothyroidism, and back pain. PAST SURGICAL HISTORY: Gastric ulcer and previous vagotomy. PAST MEDICATIONS: Reviewed including [place]. SOCIAL HISTORY: Passive smoker. Nonalcohol consumer. ALLERGIES: No medications except aspirin. FAMILY HISTORY: Noncontributory. REVIEW OF SYSTEMS: HEENT: Denies double vision or blurred vision. RESPIRATORY: Denies acute shortness of breath; however, chronically short of breath. CARDIOVASCULAR: Atypical chest pain. DIGESTIVE SYSTEM: Nausea and dysphagia. PHYSICAL EXAMINATION: VITAL SIGNS: Stable. GENERAL: Frail patient. HEENT: Head normocephalic, nontraumatic. Mouth and buccal mucosa benign. NECK: Supple, no thyromegaly, no cervical lymphadenopathy. CHEST: Symmetric anatomy, equal expansion. No wheeze, no rhonchi. HEART: Normal sinus rhythm, no gallop, no murmur. ABDOMEN: Soft. No hepato-organomegaly. Bowel sounds present. EXTREMITIES: Within normal limits. NEUROLOGIC: Alert, oriented to time, place, and person. LABORATORY DATA: Labs reviewed. Records reviewed. IMPRESSION: Atypical chest pain, ruling out esophageal ulcer, upper gastrointestinal gastric and duodenal ulcers, dysphagia, ruling out esophageal stricture versus malignancy. PLAN AND DISCUSSION: Gastroscopy today. [place], [place] REPORT OF CONSULTATION NAME: NORMAN CUEVAS UNIT #: [id number] ROOM: 507 DOCTOR: RAJINDER RIVERA MD BIRTHDATE: [birth year] RAJINDER RIVERA MD CM:CONSTR:REPORT OF CONSULTATION 1235 12/27/18 1535 interface
--- NOTE | ~2018-12-26 | PR ---
[place], [place] PROGRESS NOTE NAME: NORMAN CUEVAS UNIT #: [id number] ROOM: 507 DOCTOR: SILVIA AUSTIN MD BIRTHDATE: [birth year] DOS: SUBJECTIVE: The patient is not having any complaints. OBJECTIVE: VITAL SIGNS: Graphic trend shows a pressure 142/70, pulse of 76, respirations 14, afebrile. LUNGS: Clear. HEART: Regular. ABDOMEN: Soft, nontender. EXTREMITIES: Without any edema. ASSESSMENT AND PLAN: 1. Acute erosive gastritis, on medications, which has improved. His abdominal pain is no longer nauseous. 2. Benign hypertension, controlled. The patient is advised to avoid taking nonsteroidals and alcohol as well as acidic foods. He is stable and can be discharged home. Follow with Dr. Abdi as an outpatient. Prescription for Carafate and Protonix was given. SILVIA AUSTIN MD CM:PNTRANS 1250 [id number] SILVIA AUSTIN MD 12/30/18 0054 interface
--- NOTE | ~2018-12-26 | PR ---
[place], [place] PROGRESS NOTE NAME: NORMAN CUEVAS UNIT #: [id number] ROOM: 507 DOCTOR: KATHRINE LEBLANC MD BIRTHDATE: [birth year] DOS: 12/29/2018 SUBJECTIVE: He feels well. He does not have any chest pain. In fact, he never had any chest pain. No dizziness, weakness or palpitations. Appetite is fine. He has still mild discomfort in the belly. No fever or chills and has not had any diarrhea. He did walk in the room without much problem. PHYSICAL EXAMINATION: GENERAL: This revealed the patient is very pleasant, alert, oriented, comfortable, ____ age, claims "I'm ready to go home." VITAL SIGNS: Pulse is 96 regular, blood pressure 137/59. NECK: JVP normal. LUNGS: Clear. No murmurs. EXTREMITIES: There is no edema in lower extremities. IMPRESSION: The patient's cardiac status is stable and essentially normal. From cardiac standpoint, the patient can be discharged home. I saw this patient for Dr. Martinez. KATHRINE LEBLANC MD CM:PNTRANS 0726 [id number] KATHRINE LEBLANC MD 12/30/18 0341 interface
--- NOTE | ~2018-12-26 | EKG ---
[place], [place] ELECTROCARDIOGRAM REPORT NAME: NORMAN CUEVAS UNIT #: [id number] ROOM: 507 DOCTOR: KRISTIN DRAFT REPORT BIRTHDATE: [birth year] [facility] Test Date: 2018-12-26 Test Time: 23:14:41 Pat Name: NORMAN CUEVAS Department: Room: 50 Gender: M Shade Cutter: : 1935 Requested By: ONEAL MARTINEZ Order Number: [id number] Reading MD: Melanie Messer Measurements Intervals [place] Rate: 78 P: 75 NC: 192 QRS: 27 QRSD: 89 T: 60 QT: 401 QTc: 457 Interpretive Statements Ectopic atrial rhythm Supraventricular bigeminy Borderline ST depression, anterolateral leads Electronically Signed On 12-29-2018 12:00:17 PDT by Melanie Messer CM:EKGRPT:ELECTROCARDIOGRAM REPORT 1200 ONEAL TRAN DRAFT REPORT ONEAL MARTINEZ DO
--- NOTE | ~2018-12-26 | PR ---
[place], [place] PROGRESS NOTE NAME: NORMAN CUEVAS UNIT #: [id number] ROOM: 507 DOCTOR: SILVIA AUSTIN MD BIRTHDATE: [birth year] DOS: SUBJECTIVE: The patient is feeling better, does not have any new complaints. His nausea, abdominal pain, emesis has resolved. OBJECTIVE: VITAL SIGNS: Pressure this morning is 162/80, pulse of 100, respirations 18, temperature 98.8. LUNGS: Diminished breath sounds. Clear. HEART: Regular. ABDOMEN: Soft, minimal tenderness in the epigastric region. EXTREMITIES: Without any edema. ASSESSMENT AND PLAN: 1. The patient with acute gastritis with multiple ulcers in the stomach and duodenum. The patient is on Protonix and IV fluids as well as Carafate, we will start him on a diet. 2. Benign hypertension, not very well controlled. He is on Lexiscan. We will add a low dose of Coreg. 3. Chronic obstructive pulmonary disease without any exacerbation. He is on breathing treatments p.r.n., which he has not received any at this admission. SILVIA AUSTIN MD CM:PNTRANS 0833 [id number] SILVIA AUSTIN MD 12/28/18 0958 interface
--- NOTE | ~2018-12-26 | PR ---
[place], [place] PROGRESS NOTE NAME: NORMAN CUEVAS UNIT #: [id number] ROOM: 507 DOCTOR: KATHRINE LEBLANC MD BIRTHDATE: [birth year] DOS: 12/28/[address] Hoff. SUBJECTIVE: He feels fine. He does not have any chest pain. In fact did not have any chest pain. He had epigastric discomfort, which is still present. No nausea or vomiting. He did not have any blood in the stool. He did not have any breathing difficulty, palpitations, and no chest pain. His appetite is down a little bit. PHYSICAL EXAMINATION: GENERAL: Reveals a patient who is very pleasant, comfortable, alert, oriented. VITAL SIGNS: Temperature is normal at 99.3 degrees Fahrenheit, pulse is 88 and regular, blood pressure 114/61. NECK: Normal JVP. LUNGS: Breath sounds are mildly diminished with occasional adventitious sound. EXTREMITIES: No edema in lower extremities. ABDOMEN: Epigastric tenderness is mild. IMPRESSION: This patient did not have any chest pain, mostly upper gastrointestinal symptoms were reported. No full cardiac workup is warranted. I saw this patient on behalf of Dr. Hoff. KATHRINE LEBLANC MD CM:PNTRANS 0739 1 KATHRINE LEBLANC MD 12/28/1810 interface
--- NOTE | ~2018-12-26 | CON ---
[place], [place] REPORT OF CONSULTATION NAME: NORMAN CUEVAS UNIT #: [id number] ROOM: 507 DOCTOR: DELANEY LAMAS MD BIRTHDATE: [birth year] DOS: 12/27/2018 HISTORY OF PRESENT ILLNESS: An 83-year-old gentleman. I was consulted initially because of chest pain and was supposed to do a stress test. The PCP thought that is noncardiac and stress test has been canceled. The patient was admitted and has been sick for about 2 days with abdominal discomfort. No obvious chest discomfort. Denies having any fever or chills. Does not have any urinary symptoms. No obvious chest pain now. Hemodynamically stable. No acute EKG changes of myocardial injury or infarction. PAST MEDICAL HISTORY: Significant for hypertension, chronic back pain, chronic obstructive pulmonary disease, history of pulmonary hypertension, secondary hypothyroidism. MEDICATIONS: He is on amlodipine and Theresa. SOCIAL HISTORY: He is a nonsmoker, quit many years ago. REVIEW OF SYSTEMS: CONSTITUTIONAL: No fever, no chills. HEENT: No visual disturbances. CARDIOVASCULAR: As per HPI. GASTROINTESTINAL: No nausea, no vomiting, but does have abdominal pain. NEUROLOGIC: No syncope. VITAL SIGNS: Blood pressure today is 140/60, in sinus rhythm. HEENT: Unremarkable. NECK: Supple, no JVD. ABDOMEN: Soft. Tenderness noticed in the epigastric area. EXTREMITIES: Stable. LABORATORY DATA: Hemoglobin is 13.2, hematocrit 37.8. Protime is normal. INR is normal. EKG shows nonspecific ST-T changes. Chest x-ray showed COPD, no CHF. Lipid levels are normal. LDL is 96. Troponins are negative. IMPRESSION: The patient presented with nausea ____ abdominal pain, severe epigastric tenderness, probably acute gastritis. The patient is on IV Protonix. Consultation to Dr. Roldan has been obtained. Benign hypertension, which is well controlled. Chronic obstructive pulmonary disease. I will consider to get an echocardiogram. Monitor the blood pressure and heart rate and agree with the GI evaluation and we will follow up. [place], [place] REPORT OF CONSULTATION NAME: NORMAN CUEVAS UNIT #: [id number] ROOM: 507 DOCTOR: DELANEY LAMAS MD BIRTHDATE: [birth year] DELANEY LAMAS MD CM:CONSTR:REPORT OF CONSULTATION 5 12/27/18 1342 interface
--- NOTE | ~2018-12-26 | EKG ---
[place], [place] ELECTROCARDIOGRAM REPORT NAME: NORMAN CUEVAS UNIT #: [id number] ROOM: 507 DOCTOR: KRISTIN DRAFT REPORT BIRTHDATE: [birth year] [facility] Test Date: 2018-12-27 Test Time: 04:44:34 Pat Name: NORMAN CUEVAS Department: Room: [facility] Gender: M Rackman: Elizabeth Thomason : 1935 Requested By: ONEAL MARTINEZ Order Number: [id number] Reading MD: Melanie Messer Measurements Intervals [place] Rate: 66 P: 73 UT: 191 QRS: 19 QRSD: 87 T: 61 QT: 423 QTc: 444 Interpretive Statements Sinus rhythm Electronically Signed On 12-29-2018 12:01:57 PDT by Melanie Messer CM:EKGRPT:ELECTROCARDIOGRAM REPORT [id number] 1201 ONEAL TRAN DRAFT REPORT ONEAL MARTINEZ DO
--- NOTE | ~2018-12-26 | O ---
[place], [place] OPERATIVE NOTE NAME: NORMAN CUEVAS UNIT #: [id number] ROOM: 507 DOCTOR: RAJINDER RIVERA MD BIRTHDATE: [birth year] DOS: 12/27/2018 GASTROENDOSCOPIC REPORT INDICATIONS: The patient is an 83-year-old who has presented with chief complaint of atypical chest pain, undergoing investigation with dysphagia. PROCEDURE: Today's procedure part of investigation is panendoscopy plus photographic series and biopsy and scope dilation of distal esophagus. PREMEDICATION: Propofol. SCOPE: Olympus forward-viewing gastroscope Q10 video. REPORT: After putting the patient in left lateral position and application of lubricant to the scope, the scope was introduced. Thereafter, under direct visualization, advanced through the length of esophagus without difficulty until we get to the esophagogastric junction. This area has a stricture and benign for with ulceration. After appropriately and gently the area with the scope was dilated entered the gastric pouch. Gastritis was seen. GI reflection of the scope reveals an ulceration at the cardia. Photographed. Gastritis was noticed. Scope was negotiated towards the pyloric ring where there is ulceration in the ring margin of which was biopsied towards the duodenum. Another ulcer approximately as large as a dime posterior wall of the duodenum was noticed. Severe duodenitis seen. Photographic series obtained. Air was suctioned out. The patient was extubated, tolerated the procedure well. IMPRESSION: Benign stricture distal esophagus, status post scope dilation. Distal esophageal ulceration, gastric ulcer at the cardia, gastritis, duodenal ulcer posteriorly and duodenitis. PLAN AND DISCUSSION: Aggressive ulcer therapy with Protonix 40 mg IV b.i.d. and we will hold all the anticoagulants. We are going to keep him on sucralfate slurry 2 grams 2 hours a.c. meals and at bedtime, soft diet and clinical reassessment. [place], [place] OPERATIVE NOTE NAME: NORMAN CUEVAS UNIT #: [id number] ROOM: 507 DOCTOR: RAJINDER RIVERA MD BIRTHDATE: [birth year] RAJINDER RIVERA MD CM:OPRECORD:OPERATIVE NOTE 1235 1540 RAJINDER RIVERA MD 12/27/18 1738 interface
--- NOTE | ~2018-12-26 | EKG ---
[place], [place] ELECTROCARDIOGRAM REPORT NAME: NORMAN CUEVAS UNIT #: [id number] ROOM: 507 DOCTOR: KRISTIN DRAFT REPORT BIRTHDATE: [birth year] [facility] Test Date: 2018-12-27 Test Time: 02:05:35 Pat Name: NORMAN CUEVAS Department: Room: [facility] Gender: M Gis Mapping Technician: Elizabeth Thomason : 1935 Requested By: ONEAL MARTINEZ Order Number: [id number] Reading MD: Melanie Messer Measurements Intervals [place] Rate: 73 P: 74 [place]: 193 QRS: 7 QRSD: 86 T: 63 QT: 391 QTc: 431 Interpretive Statements Sinus rhythm Atrial premature complex Minimal ST depression, diffuse leads Electronically Signed On 12-29-2018 12:01:42 PDT by Melanie Messer CM:EKGRPT:ELECTROCARDIOGRAM REPORT [id number] 1201 ONEAL TRAN DRAFT REPORT ONEAL MARTINEZ DO
--- NOTE | ~2018-12-26 | WRIGHTHP ---
[place], [place] PATIENT HISTORY AND PHYSICAL EXAM [id number] #: [id number] ROOM: 507 DOCTOR: SILVIA AUSTIN MD BIRTHDATE: [birth year] DOS: 12/27/2018 HISTORY OF PRESENT ILLNESS: The patient is 83 years old. The patient states that he has been sick for the last 2 days with abdominal discomfort, nausea and multiple episodes of emesis. He never had any chest pain. He denies having any fever, chills, has not been eating well for the last 2 days and has no food for the last 24 hours. Does not have any urinary symptoms. Does not have any diarrhea. PAST MEDICAL HISTORY: Significant for: 1. Benign hypertension. 2. Chronic back pain for which he is on long-term use of opiates. 3. Chronic obstructive pulmonary disease. 4. History of pulmonary hypertension secondary. 5. Hypothyroidism. MEDICATIONS: He is currently on amlodipine 10 daily and Keystone 7.5 q.i.d. p.r.n. SOCIAL HISTORY: Nonsmoker. He was a smoker for many years. Denies using any alcohol occasional very rare alcohol usage, mostly socially. PHYSICAL EXAMINATION: VITAL SIGNS: Graphic trend shows a pressure of 147/69, pulse of 75, respirations 18, temperature 98.2. LUNGS: Diminished breath sounds. Scattered rhonchi heard. HEART: Regular. ABDOMEN: Soft. Severe tenderness noticed in the epigastric area. EXTREMITIES: Without any edema. LABORATORY DATA: Shows WBC count is 10.0, hemoglobin 13.2, hematocrit 37.6. Protime is 10.0 with INR of 0.9. EKG showed sinus rhythm, nonspecific STs. Chest x-ray shows COPD without any evidence of CHF. Troponin 2 sets have come back negative. Lipid levels within normal limits. LDL of 96. ASSESSMENT AND PLAN: 1. The patient who presents with nausea, emesis, abdominal pain, severe epigastric tenderness, most likely has acute gastritis. The patient is placed on IV Protonix, IV fluids and IV Dilaudid for pain. Consultation with Dr. Roldan for endoscopy. A CT of the abdomen and pelvis to rule out gallbladder stones. 2. Benign hypertension, controlled. The patient was ordered to rule out myocardial infarction protocol because the impression that the ER gave was that the patient had chest pain, which is not the case. The patient does not have any chest pain, so does not need any cardiac workup right now. 3. Chronic obstructive pulmonary disease with secondary pulmonary hypertension. Start breathing treatments. [place], [place] PATIENT HISTORY AND PHYSICAL EXAM NAME: NORMAN CUEVAS UNIT #: [id number] ROOM: [facility] DOCTOR: SILVIA AUSTIN MD BIRTHDATE: [birth year] SILVIA AUSTIN MD CM:HISPHYS:PATIENT HISTORY AND PHYSICAL EXAMINATION 3 6 SILVIA AUSTIN MD 12/27/18813 interface
[2018-12-26 23:15] VITALS: BP 178/99
[2018-12-26 23:31] LABS: BASO % 0.2 % (0.0-1.0); EOS % 0.3 % (1.0-4.0); HEMATOCRIT 37.6 % (42.0-52.0); HEMOGLOBIN 13.2 g/dl (14.0-18.0); LYMPH # 1.2 10*3/uL (1.3-4.4); LYMPH % 11.7 % (27.0-41.0); MEAN CELL VOLUME 98.7 fl (80.0-94.0); MEAN CORPUSCULAR HGB 34.6 pg (27.0-31.0); MEAN CORPUSCULAR HGB CONC 35.1 g/dl (33.0-37.0); MEAN PLATELET VOLUME 8.2 fl (9.6-12.3); MONO # 0.8 10*3/uL (0.1-1.0); MONO % 8.3 % (3.0-9.0); NEUT # 7.9 10*3/uL (2.3-7.9); NEUT % 79.2 % (47.0-73.0); PLATELET COUNT AUTOMATED 319 10*3/uL (130-400); RED BLOOD COUNT 3.81 10*6/uL (4.50-5.90); RED CELL DISTRI WIDTH 12.2 % (0-14.5)
[2018-12-26 23:41] LABS: ACT PARTIAL THROMBO TIME 25.6 SECONDS (20.0-32.1); INTERNATIONAL NORM RATIO 0.9 (2.0-3.5)
[2018-12-26 23:48] LABS: ALBUMIN 3.4 gm/dl (3.1-4.5); ALKALINE PHOSPHATASE 78 U/L (45-117); BUN 13 mg/dl (7-24); CHLORIDE 101 mmol/L (98-107); CREATININE 0.69 mg/dL (0.70-1.30); POTASSIUM 4.1 mmol/L (3.5-5.1); SGOT/AST 12 IU/L (3-35); SGPT/ALT 51 U/L (12-78); SODIUM 133 mmol/L (136-145); TOTAL PROTEIN 7.1 gm/dL (6.4-8.2)
[2018-12-26 23:49] LABS: TROPONIN I < 0.015 ng/ml (<0.045)
[2018-12-27] VITALS (13 sets, daily range): BP systolic 134–198; BP diastolic 67–96
--- NOTE | 2018-12-27 00:27 | NUR ---
ASSISTED PATIENT TO BATHROOM. AMBULATED WITHOUT DIFFICULTY BY SELF. NO C/O VOICED.
--- NOTE | 2018-12-27 03:34 | NUR ---
DENIES SOB OR CHEST PAIN
--- NOTE | 2018-12-27 05:10 | NUR ---
A 83, admitted to 5E, under the services of SILVIA Louis MD with a diagnosis of CHEST PAIN. Chief complaint is CHEST PAIN. Patient arrived via ambulance from ER. Monitor applied. Initial assessment completed. Vital signs taken and recorded. SILVIA LOUIS MD notified of admission to the unit. Orders received. See assessment for past medical history, medications and allergies. Patient and/or family oriented to unit. visitation policy reviewed. Clothing/patient valuable form completed. JB MCKEON
[2018-12-27] MEDS ORDERED: NORCO 7.5-3251 EACH PO (05:31)
--- NOTE | 2018-12-27 06:21 | NUR ---
DR. VÁZQUEZ NOTIFIED OF CONSULT FOR PATIENT. NEW ORDER FOR LEXISCAN CARIOLYTE STRESS TEST.
[2018-12-27 06:32] LABS: CHOLESTEROL 194 mg/dL (<200); HDL CHOLESTEROL 82 mg/dl (40-60); LDL CHOLESTEROL 96 mg/dL (9-159); TRIGLYCERIDES 81 mg/dl (<150); VLDL CHOLESTEROL 16 mg/dL (6-40)
--- NOTE | 2018-12-27 07:47 | NUR ---
IV DILAUDID GIVEN PER ORDER FOR C/O ABD PAIN. RATES PAIN 9/10. WILL MONITOR EFFECTIVENESS.
--- NOTE | 2018-12-27 07:55 | NUR ---
IN TO SEE PATIENT REGARDING ADMISSION. PT C/O ABD PAIN AND NAUSEA. NEW ORDERS RECEIVED. STRESS TEST CANCELED AT THIS TIME.
--- NOTE | 2018-12-27 08:07 | NUR ---
IV ZOFRAN GIVEN ORDER FOR C/O NAUSEA. WILL MONITOR EFFECTIVENESS.
--- NOTE | 2018-12-27 09:22 | NUR ---
CALLED AT THIS TIME REGARDING CT ORDER. CLARIFICATION OF CT ORDER REVIEWED.
--- NOTE | 2018-12-27 09:24 | NUR ---
THIS NURSE SPOKE WITH . STATED SHE SPOKE WITH REGARDING EGD TODAY. PROCEED WITH EGD PER .
--- NOTE | 2018-12-27 09:32 | NUR ---
IN TO SEE PATIENT REGARDING CONSULT AND UPDATED ON PLAN OF CARE.
--- NOTE | 2018-12-27 10:05 | NUR ---
CALLED REGARDING PAIN MEDICATION. AWAITING RETURN PHONE CALL.
--- NOTE | 2018-12-27 10:26 | NUR ---
CT PREP CANNOT BE STARTED UNTIL AFTER PATIENT'S EGD.
--- NOTE | 2018-12-27 10:47 | NUR ---
RETURNED CALL. NEW ORDERS RECEIVED.
--- NOTE | 2018-12-27 11:19 | NUR ---
SURGERY HERE TO TRANSPORT PATIENT FOR SCHEDULED EGD.
--- NOTE | 2018-12-27 13:23 | NUR ---
CT CALLED AT THIS TIME. PT DONE WITH EGD. OKAY TO PROCEED WITH CT PREP.
--- NOTE | 2018-12-27 13:37 | NUR ---
CT PREP INITIATED AT THIS TIME.
--- NOTE | 2018-12-27 13:46 | NUR ---
CALLED REGARDING BP OF 168/82. NEW ORDERS RECEIVED.
--- NOTE | 2018-12-27 14:30 | NUR ---
Charging Machine Operator in to talk to patient. Patient states lives at home alone. Physician: Dr. Dyllan Abdi Pharmacy: [facility] services: none Discharge plan discussed with patient. He lives at home alone. He requested CM to return tomorrow as he has had a long day. Discharge plan undecided at this time. DONA WINTERS
--- NOTE | 2018-12-27 15:26 | NUR ---
PATIENT ENCOURAGED TO DRINK MORE OF BARIUM SWALLOW. STATES THAT HE WILL ATTEMPT TO DO SO. NOTED NOT MUCH TAKEN IN AT THIS TIME, PATIENT COMPLAINTS THAT HE DOESN'T THINK HE'LL BE ABLE TO DRINK ALL OF THE BARIUM SWALLOW. UNIQUE ENCOURAGED AGAIN, INFORMED HIS TEST IS AT 4PM.
--- NOTE | 2018-12-27 19:15 | NUR ---
PATINET HR INCREASED TO 120'S WHILE USING THE BATHROOM, SOME ARTIFACT NOTED, PATIENT WAS MOVING GOWN AROUND AND ALSO COUGHINH. ONCE IN BED PATIENT'S HR <100 BPM AFTER RESTING.
[2018-12-28] VITALS: BP 148/61
--- NOTE | 2018-12-28 03:52 | NUR ---
PT LYING IN BED, SLEEPING. RESPIRATIONS EASY AND UNLABORED. IV FLUIDS INFUSING PER ORDER. NO S/S OF DISTRESS. SAFETY MEASURES IN PLACE. CALL LIGHT IN REACH.
[2018-12-28 07:47] VITALS: BP 162/80
--- NOTE | 2018-12-28 07:48 | NUR ---
PATIENT SLEEPING QUIETLY IN BED. AROUSES EASILY. RESPIRATIONS EASY, REGULAR. DENIES ANY ABD PAIN/DISCOMFORT AT THIS TIME. PT STATES FEELING SLIGHTLY BETTER. IVF INFUSING. WILL MONITOR. CALL LIGHT WITHIN REACH.
--- NOTE | 2018-12-28 11:00 | NUR ---
Safety Engineer Pressure Vessels in to talk to patient. Patient states lives at home alone with his family and neighbors checking in on him. There are 0 steps in the home. Physician: Dr. Dyllan Abdi Pharmacy: [facility] Home health services: none Patient's level of ADLs: INDEPENDENT Patient has working utilities: yes DME: none Follow-up physician's appointment after d/c: he prefers to make his own follow up apt after discharge Does patient want to access PORTAL?: no Discharge plan discussed with patient. He lives at home alone with his family and neighbors checking in on him. He is independent in his ADLs and ambulation. Discussed home health care services and he denies any home needs at this time. When medically stable he will be discharged to home. He states his neighbor will transport on discharge. DONA WINTERS
--- NOTE | 2018-12-28 11:46 | NUR ---
PT MEDICATED WITH IV DILAUDID AND IV ZOFRAN PER PRN ORDER FOR C/O ABD PAIN AND NAUSEA. RATES PAIN 11/18. WILL MONITOR EFFECTIVENESS.
[2018-12-28 12:00] VITALS: BP 124/69
--- NOTE | 2018-12-28 12:33 | NUR ---
PAIN/NAUSEA BEING RELIEVED PER PT. WILL CONTINUE TO MONITOR.
[2018-12-28 16:00] VITALS: BP 118/65
[2018-12-28 20:00] VITALS: BP 119/59
--- NOTE | 2018-12-28 20:28 | NUR ---
PT REQUESTING SOMETHING TO HELP SLEEP. NOTIFIED. 5 MG OF AMBIEN ORDERED.
--- NOTE | 2018-12-28 22:05 | NUR ---
PT C/O EPIGASTIC PAIN RATING IT A 9/10 ON THE PAIN SCALE. MEDICATED WITH PRN DILAUDID. CALL LIGHT WITHIN REACH. WILL MONITOR.
--- NOTE | 2018-12-28 22:14 | NUR ---
PT C/O NOT BEING ABLE TO SLEEP WELL LAST NIGHT. MEDICATED WITH AMBIEN. CALL LIGHT WITHIN REACH. WILL MONITOR.
--- NOTE | 2018-12-28 22:50 | NUR ---
PT STATES PAIN MED WAS EFFECITVE. RATING PAIN A 5/10. WILL MONITOR.
--- NOTE | 2018-12-28 23:10 | NUR ---
PT SLEEPING. SLEEPING PILL EFFECTIVE. NO SIGNS OF DISTRESS. RESPIRATIONS EASY, NONLABORED. WILL CONTINUE TO MONITOR.
[2018-12-29] VITALS: BP 137/59
[2018-12-29 06:57] LABS: BASO % 0.3 % (0.0-1.0); EOS # 0.1 10*3/uL (0.0-0.4); EOS % 2.1 % (1.0-4.0); HEMATOCRIT 33.9 % (42.0-52.0); HEMOGLOBIN 11.9 g/dl (14.0-18.0); LYMPH # 0.9 10*3/uL (1.3-4.4); LYMPH % 16.2 % (27.0-41.0); MEAN CELL VOLUME 98.5 fl (80.0-94.0); MEAN CORPUSCULAR HGB 34.6 pg (27.0-31.0); MEAN CORPUSCULAR HGB CONC 35.1 g/dl (33.0-37.0); MEAN PLATELET VOLUME 8.3 fl (9.6-12.3); MONO # 0.6 10*3/uL (0.1-1.0); MONO % 10.9 % (3.0-9.0); NEUT # 4.1 10*3/uL (2.3-7.9); NEUT % 70.2 % (47.0-73.0); PLATELET COUNT AUTOMATED 259 10*3/uL (130-400); RED BLOOD COUNT 3.44 10*6/uL (4.50-5.90); RED CELL DISTRI WIDTH 12.1 % (0-14.5); WHITE BLOOD COUNT 5.8 10*3/uL (4.8-10.8)
[2018-12-29 07:27] LABS: CREATININE 0.59 mg/dL (0.70-1.30)
[2018-12-29] MEDS ORDERED: CARAFATE1 G1 PO (08:39)
[2018-12-29] MEDS ORDERED: PROTONIX40 MG PO (08:39)
--- NOTE | 2018-12-29 10:51 | NUR ---
Discharge instructions reviewed with patient/family. Patient receptive and verbalizes understanding. Follow-up care arranged. Written instructions given to patient/family. ARNOLD TESFAYE
== END 2018-12-29 10:51 | disposition home or self-care (01) | DRG 384 ==
LOC: ED 23:10 → EDHOLD 12-27 03:59 → 5E 12-27 03:59
PROVIDERS: Emergency Medicine; ADMIT Internal Medicine
PROC: 0DB98ZX Excision of Duodenum, Via Natural or Artificial Opening Endoscopic, Diagnostic (ICD-10-PCS; principal; 2018-12-27)
PROC: 0D738ZZ Dilation of Lower Esophagus, Via Natural or Artificial Opening Endoscopic (ICD-10-PCS; principal; 2018-12-27)
PROC: 0DB78ZX Excision of Stomach, Pylorus, Via Natural or Artificial Opening Endoscopic, Diagnostic (ICD-10-PCS; principal; 2018-12-27)
DX: K25.3 Acute gastric ulcer without hemorrhage or perforation (principal); K22.10 Ulcer of esophagus without bleeding; K26.9 Duodenal ulcer, unspecified as acute or chronic, without hemorrhage or perforation; E03.8 Other specified hypothyroidism; I27.20 Pulmonary hypertension, unspecified; K22.2 Esophageal obstruction; K29.80 Duodenitis without bleeding; J44.9 Chronic obstructive pulmonary disease, unspecified; I10 Essential (primary) hypertension; G89.29 Other chronic pain; M54.9 Dorsalgia, unspecified; R07.89 Other chest pain; R13.10 Dysphagia, unspecified; Z88.6 Allergy status to analgesic agent; Z79.899 Other long term (current) drug therapy

== ENCOUNTER 2021-04-11 13:30 | Emergency (ER) | payer MEDICARE ==
[~2021-04-11] VITALS: Wt 60.3 kg
[~2021-04-11 13:30] MED LIST changes: +CARAFATE1 G1 PO; +GABAPENTIN100 M2 PO; +NORCO 7.5-3251 EACH PO; +PROTONIX40 MG PO; +TAMSULOSIN HCL0.4 MG PO
[2021-04-11 15:06] LABS: BASO % 0.3 % (0.0-1.0); EOS % 0.1 % (1.0-4.0); HEMATOCRIT 41.1 % (42.0-52.0); LYMPH % 11.2 % (27.0-41.0); MEAN CELL VOLUME 98.6 fl (80.0-94.0); MEAN CORPUSCULAR HGB 33.1 pg (27.0-31.0); MEAN CORPUSCULAR HGB CONC 33.6 g/dl (33.0-37.0); MEAN PLATELET VOLUME 8.2 fl (9.6-12.3); MONO # 0.6 10*3/uL (0.1-1.0); MONO % 6.5 % (3.0-9.0); NEUT # 7.2 10*3/uL (2.3-7.9); NEUT % 81.7 % (47.0-73.0); PLATELET COUNT AUTOMATED 456 10*3/uL (130-400); RED BLOOD COUNT 4.17 10*6/uL (4.50-5.90); RED CELL DISTRI WIDTH 11.9 % (0-14.5); WHITE BLOOD COUNT 8.9 10*3/uL (4.8-10.8)
[2021-04-11 15:17] LABS: ACT PARTIAL THROMBO TIME 25.6 SECONDS (20.0-32.1)
[2021-04-11 15:31] LABS: ALBUMIN 3.7 gm/dl (3.1-4.5); ALKALINE PHOSPHATASE 49 U/L (45-117); BUN 12 mg/dl (7-24); CHLORIDE 104 mmol/L (98-107); CREATININE 0.74 mg/dL (0.70-1.30); LIPASE 47 U/L (73-393); POTASSIUM 3.8 mmol/L (3.5-5.1); SGOT/AST 14 IU/L (3-35); SGPT/ALT 12 U/L (12-78); SODIUM 137 mmol/L (136-145); TOTAL PROTEIN 8.4 gm/dL (6.4-8.2)
[2021-04-11 18:04] LABS: BILIRUBIN Negative (Negative); BLOOD Trace-Intact (Negative); CLARITY Clear (Clear); COLOR Yellow (Yellow); GLUCOSE Negative (Negative); KETONE 1+ (Negative); LEUKO ESTERASE Negative (Negative); NITRITE Negative (Negative); PH 7.5 (4.5-8.0); SPECIFIC GRAVITY 1.015 (1.001-1.030); UROBILINOGEN 0.2 E.U./dl (0.0-1.0)
[2021-04-11 18:34] LABS: BACTERIA TRACE; EPITHELIAL CELLS 0-2
== END 2021-04-11 18:49 | disposition home or self-care (01) ==
LOC: ED 13:30
PROVIDERS: Emergency Medicine; Physician Assistant
DX: K52.9 Noninfective gastroenteritis and colitis, unspecified (principal); Z88.6 Allergy status to analgesic agent; Z79.899 Other long term (current) drug therapy

== ENCOUNTER → 2021-07-09 | Outpatient (CLI) | payer MEDICARE ==
[~2021-07-09] MED LIST changes: +Carafate1 GM PO; +MASON NATURAL325 MG PO
[2021-07-09 09:38] LABS: BASO % 0.8 % (0.0-1.0); EOS # 0.1 10*3/uL (0.0-0.4); EOS % 2.8 % (1.0-4.0); HEMATOCRIT 30.8 % (42.0-52.0); LYMPH # 1.3 10*3/uL (1.3-4.4); LYMPH % 26.7 % (27.0-41.0); MEAN CELL VOLUME 96.9 fl (80.0-94.0); MEAN CORPUSCULAR HGB 32.4 pg (27.0-31.0); MEAN CORPUSCULAR HGB CONC 33.4 g/dl (33.0-37.0); MEAN PLATELET VOLUME 8.1 fl (9.6-12.3); MONO # 0.6 10*3/uL (0.1-1.0); MONO % 11.7 % (3.0-9.0); NEUT # 2.9 10*3/uL (2.3-7.9); NEUT % 57.8 % (47.0-73.0); PLATELET COUNT AUTOMATED 428 10*3/uL (130-400); RED BLOOD COUNT 3.18 10*6/uL (4.50-5.90); RED CELL DISTRI WIDTH 14.9 % (0-14.5)
[2021-07-09 09:55] LABS: ALKALINE PHOSPHATASE 48 U/L (45-117); BUN 8 mg/dl (7-24); CHLORIDE 106 mmol/L (98-107); CHOLESTEROL 162 mg/dL (<200); CREATININE 0.75 mg/dL (0.70-1.30); IRON 32 ug/dL (65-175); LDL CHOLESTEROL 79 mg/dL (9-159); POTASSIUM 3.8 mmol/L (3.5-5.1); SGOT/AST 7 IU/L (3-35); SGPT/ALT 7 U/L (12-78); SODIUM 136 mmol/L (136-145); T3 UPTAKE 32 % (31-39); TRIGLYCERIDES 80 mg/dl (<150)
[2021-07-09 11:05] LABS: VITAMIN D, 25-HYDROXY 28.9 ng/mL (30-100)
[2021-07-09 11:06] LABS: FERRITIN 49.9 ng/mL (22.0-322.0)
== END | disposition home or self-care (01) ==
LOC: LAB 09:23
PROVIDERS: ATTEND Internal Medicine
DX: I10 Essential (primary) hypertension (principal); E78.2 Mixed hyperlipidemia; E03.9 Hypothyroidism, unspecified; E55.9 Vitamin D deficiency, unspecified; D64.9 Anemia, unspecified

== ENCOUNTER 2021-09-06 15:26 | Emergency (ER) | payer MEDICARE ==
[~2021-09-06] VITALS: Wt 59.0 kg
[2021-09-06] MEDS ORDERED: VALTREX1000 MG PO (16:06)
[2021-09-06] MEDS ORDERED: NEURONTIN300 MG PO (16:06)
== END 2021-09-06 16:30 | disposition home or self-care (01) ==
LOC: ED 15:26
DX: B02.9 Zoster without complications (principal)